=== PATIENT | female | born 1955 | race Caucasian/White ===

== ENCOUNTER → 2018-06-26 10:31 | Outpatient (CLI) | payer BC, SELFPAY ==
[2018-06-22 07:46] VITALS: BMI 28.4
--- NOTE | 2018-06-26 07:24 | PET_ITS ---
EXAMINATION: FDG PET CT INDICATIONS: A 63-year-old female with history of pulmonary nodularity. COMPARISON EXAMINATION: CT of the chest report dated 06/12/18. NON-INDEX LESION SIZE SUV INTERPRETATION Left lobe thyroid gland 14.3 mm (frame 222) 3.9 May be further investigated with thyroid ultrasound secondary to the quantitative degree of uptake TECHNIQUE: Following the intravenous administration of 14.01 mCi of F-18 deoxyglucose via the right antecubital fossa, multiplanar image acquisitions of the neck, chest, abdomen and pelvis to level of mid thigh, obtained at one hour post radiopharmaceutical administration contemporaneously interpreted with the current CT of the neck, chest, abdomen and pelvis to level of mid thigh, dated 06/26/[address] of the chest report dated 06/12/18 reveal: SERUM GLUCOSE LEVEL: 91 mg/dl. HEIGHT: 65 inches. WEIGHT: 175 lbs. FINDINGS: 1. Asymmetric increased glucose concentration is observed in the left anterior neck contiguous to the left lobe of the thyroid gland generating a calculated maximum standard uptake value of 3.9. The maximal axial diameter of the corresponding metabolic abnormality on review of CT of the neck dated 06/26/18 is 14.3 mm (AP). 2. There is no quantitative scintigraphic evidence of abnormal increased glucose metabolism within the context of the right lower medial lung field-right lower lobe to correspond to a noncalcified approximately 13.9 mm parenchymal density on review of CT of the chest dated 06/26/18. 3. Normal physiologic distribution of the radiopharmaceutical is apparent in the hepatic (2.9) and splenic parenchyma, both renal units, bladder and visualized intestinal tract. There is uniform distribution of the radiopharmaceutical concentration defined in the visualized cerebellar hemispheres and cerebral cortical structures.? Diffuse intestinal tract activity is noted throughout all four quadrants of the abdominal-pelvic retroperitoneum, mesentery consistent with normal physiologic distribution of the radiopharmaceutical. Prominent glucose metabolism is defined in the ascending and descending thoracic aorta commensurate with activated leukocytes associated with atherosclerotic plaque formation. (Sulaiman watts al, Clinical Nuclear Medicine 29:93, 2004). Pertinent CT findings are as follows. CHEST: Emphysematous change is noted in the bilateral upper lung zones. There are no additional parenchymal densities-nodules defined in the right-left hemithorax demonstrating discernible, quantitatively significant increased glucose metabolism. Right-left axillary subcentimeter soft tissue densities are non-glucose avid. ABDOMEN AND PELVIS: Atherosclerotic calcification is defined in the abdominal aorta without evidence of dilatation, aneurysm formation. Pelvic arterial calcification is observed. Bilateral inguinal soft tissue densities are ametabolic. Colonic diverticulosis is defined. The uterus appears surgically absent. SKELETAL: Degenerative changes defined in the cervical, thoracic and lumbar spine demonstrate no evidence for glucose hypermetabolism. PET/PET/CT Tumor Base -Thigh Init IMPRESSION: 1. Asymmetric increased glucose concentration observed in the left lobe of the thyroid gland may be further investigated with thyroid ultrasound secondary to the quantitative degree of uptake. (Allan Joya et al, Journal of Clinical Endocrinology and Metabolism 88:4100, 2003). 2. Anatomic stability may be ensured in the ametabolic right hemithorax pulmonary parenchymal-right lower lobe noncalcified parenchymal density with repeat CT of the thorax in three months. (Peyman, Seminars in Thoracic and Cardiovascular Surgery 14:292, 2002). Electronic Signature Jose Ferrari D.O. Electronically Signed: Jose Ferrari DO at 23:31 EST Tel , Service support ,
== END ==
PROVIDERS: Family Provider Internal Medicine; PCP Internal Medicine; Visit Provider Internal Medicine Critical Care Medicine
DX: R93.89 Abnormal findings on diagnostic imaging of other specified body structures (principal); R91.1 Solitary pulmonary nodule
CPT/HCPCS: 78815; A9552

== ENCOUNTER → 2018-07-28 07:38 | Outpatient (CLI) | payer BC, SELFPAY ==
[2018-06-22 07:46] VITALS: BMI 28.4
--- NOTE | 2018-07-28 12:29 | PFT ---
INTRODUCTION: The patient is a 63-year-old female that presents for pulmonary function studies secondary to a diagnosis of dyspnea. Respiratory therapy reports good patient effort. Bronchodilators were used during testing. INTERPRETATION: Forced expiration spirometry demonstrates no evidence of a large airways obstructive ventilatory defect. There was no significant response to aerosolized bronchodilators, based upon strict ATS criteria. Spirograms are of good quality and plateau gradually. Body plethysmography was performed and reveals lung volumes to be within normal limits. Diffusing capacity by single breath CO is also within normal limits. IMPRESSION: Normal pulmonary function studies.
== END ==
PROVIDERS: Family Provider Internal Medicine; PCP Internal Medicine; Referring Provider Internal Medicine Critical Care Medicine; Visit Provider Internal Medicine Critical Care Medicine
DX: R06.00 Dyspnea, unspecified (principal)
CPT/HCPCS: 94060; 94726; 94729

== ENCOUNTER → 2019-01-11 | Outpatient (CLI) | payer BC, SELFPAY ==
[2018-08-14 09:47] VITALS: BMI 28.4
--- NOTE | 2019-01-11 13:05 | CT_ITS ---
STUDY: CT CHEST WITHOUT CONTRAST REASON FOR EXAM: Female, 63 years old. Lung nodule RADIATION DOSAGE (If Supplied By Facility): CTDIvol = ( 12.47 ) mGy, DLP = ( 426.82 ) mGycm TECHNIQUE: Transaxial imaging was performed without the administration of intravenous contrast material. Multiplanar coronal and sagittal images were reformatted. Individualized dose optimization techniques were used for this CT. COMPARISON: Previous PET scan FINDINGS: Soft tissue windows show a left thyroid nodule which has shown to have uptake on the most recent PET scan. Lungs are well expanded, there is no superimposed infiltrate or effusion. There is a noncalcified 4mm nodule in the left medial lung base on axial image 97 this is too small to characterize, and likely did not show uptake on PET scan. There is no demonstrated pleural abnormality. Normal heart and pericardium. Normal mediastinum. Normal hilar regions. Normal unenhanced pulmonary arteries. Normal aorta arch and descending thoracic aorta. Normal osseous structures. There is no demonstrated abnormality of the visualized upper abdomen. CT/Chest without Contrast IMPRESSION: There is a 4 mm noncalcified pleural-based nodule in the medial left lower lung base No superimposed infiltrate or effusion No suspicious adenopathy Electronically Signed: Shawn Bay MD at 13:33 EDT , Service support ,
== END | disposition home or self-care (01) ==
PROVIDERS: Family Provider Internal Medicine; PCP Internal Medicine; Referring Provider Internal Medicine Critical Care Medicine; Visit Provider Internal Medicine Critical Care Medicine
DX: J84.10 Pulmonary fibrosis, unspecified (principal); R93.89 Abnormal findings on diagnostic imaging of other specified body structures
CPT/HCPCS: 71250

== ENCOUNTER 2019-07-10 12:18 | Day surgery (SDC) | payer BC, SELFPAY ==
[2019-07-05 14:52] VITALS: BMI 28.4
--- NOTE | 2019-07-09 20:36 | HP.PCM_ITS ---
History and Physical Date of Admission: 07/10/19 HISTORY OF PRESENT ILLNESS 64 year old woman presents with a recent diagnosis of melanoma on her right proximal outer arm on 06/21/19. She stated she had a lesion that had been increasing in size and had changed pigmentation over the last several months. A shave biopsy showed superficial spreading melanoma with a thickness of 0.8 mm. There was also melanoma in situ at the peripheral margin. She also had a lesion on her right proximal anterior arm that was shave biopsied at the same time which showed a mildly dysplastic nevus. This lesion had also been increasing in size as well. She has a family history of melanoma. She is right hand dominant. She presents at this time for further evaluation and treatment. PAST MEDICAL HISTORY Lung granuloma Synovial cyst of popliteal space [Scott], right knee Impingement syndrome of right shoulder C. difficile enteritis Osteoarthritis PAST SURGICAL HISTORY excision of ganglion cyst tonsillectomy hysterectomy toe surgery tubal ligation ALLERGIES Penicillins MEDICATIONS ibuprofen multivitamin FAMILY HISTORY Sister - Rheumatoid arthritis, Diabetes, COPD (chronic obstructive pulmonary disease), Atrial fibrillation, Hypertension, High cholesterol, Melanoma Father - Diabetes, COPD (chronic obstructive pulmonary disease), Colon cancer Mother - Atrial fibrillation, Colon cancer, Arthritis Brother - Diabetes SOCIAL HISTORY Smoking Status: Former smoker quit date: 05/23/92 pack-years: 40 alcohol intake: never substance use type: does not use REVIEW OF SYSTEMS General - Denies fever, fatigue, and weight loss. Eyes - Denies cataracts and glaucoma. ENT - Denies nasal congestion and sore throat. Endocrine - Denies excessive thirst and urination. Skin - Has family history of melanoma. Had lesion right proximal outer arm that was biopsied on 06/21/19 and it showed a superficial spreading melanoma with a thickness on 0.8 mm and melanoma in situ. Had lesion right proximal anterior arm that was biopsied on 06/21/19 and it showed a mildly dysplastic nevus. Musculoskeletal - Denies joint pain, weakness of muscles and joints, back pain. Has joint stiffness and arthritis. Neuro - Denies headaches. Cardiovascular - Denies chest pain, fatigue, and shortness of breath with exertion. Psych - Denies anxiety and depression. Respiratory - Denies chronic cough and shortness of breath. Patient is a former smoker. Gastrointestinal - Denies nausea, vomiting, diarrhea, and constipation. Hematologic - Denies abnormal bruising and bleeding. Genitourinary - Denies hematuria and urinary frequency. PHYSICAL EXAMINATION General - Alert and Oriented. HEENT - PERRL. EOMI. Throat is clear. No suspicious lesions noted. Neck - Supple and nontender. No cervical adenopathy. No suspicious lesions noted. Lungs - Clear to auscultation. Heart - Regular rate and rhythm. Abdomen - Soft and nondistended. Extremities - FROM. No axillary adenopathy. Radial pulses are palpable. On the right proximal outer arm is a healing scab from recent shave biopsy that showed superficial spreading melanoma with a thickness of 0.8 mm and a melanoma in situ. Healing scar measures 7 mm. Has irregular borders. No ulceration. Lesion is nontender. On the right proximal anterior arm is a healing scab from recent shave biopsy that showed mildly dysplastic nevus. Healing scar measures 5 mm. Has irregular borders. No ulceration. Lesion is nontender. Neuro - CN II-XII grossly intact. Psych - Normal mood and affect. ASSESSMENT 1. 7 mm superficial spreading melanoma right proximal outer arm with a shave thickness of 0.8 mm. 2. 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 3. 5 mm mildly dysplastic nevus right proximal anterior arm. 4. Family history of melanoma. 5. Former smoker. PLAN Had discussion with the patient regarding treatment of melanoma. She had a shave biopsy on 06/21/19 which showed a superficial spreading melanoma with an initial thickness of 0.8 mm. Since it was a shave biopsy, will need to establish the diagnosis with a completion excision into the subcutaneous tissue. Will leave the wound open initially and start wound care with Silver dressing changes. Once the pathology is available, we can determine the thickness. The thickness determines the margin necessary at the time of the definitive wide excision of the melanoma down to the muscular fascia with skin flap or skin graft reconstruction. The thickness of melanoma is divided into thin category which is thickness less than 1 mm, intermediate category which is thickness between 1 and 4 mm. and thick category which is thickness greater than 4 mm. The intermediate category (between 1 and 4 mm) necessitates further evaluation of the lymph nodes with a sentinel node biopsy. If positive than a complete lymph node dissection would be done. This procedure if necessary would be done at a tertiary center. Right now the patient has a thickness of 0.8 mm which is thin right now but depending on the completion excision, it may increase to the intermediate thickness category. Patient is aware that more extensive surgery may need to be done at a tertiary center. Once the thickness has been determined with a full thickness excision, then can determine the margin of excision for the definitive treatment. For a thin melanoma (thickness less than 1 mm), the margin is 1 cm. For an intermediate thickness melanoma (thickness between 1 and 4 mm), the margin is 2 cm. For a thick melanoma (thickness greater than 4 mm), the margin is 2-3 cm. After this melanoma is treated, she would need close followup with TBSE every 3- 6 months for the next 5 years at least and then yearly. She would need a yearly CXR and lab work with LFT's which includes an LDH and fractionation of the Alkaline Phosphatase. She also had a shave biopsy of a lesion on the right proximal anterior arm which showed a mildly dysplastic nevus. She will need a completion excision of this lesion as well to minimize recurrence and development into a melanoma. If inadequately treated, the recurrence rate and risk of developing a melanoma in a patient with a melanoma approaches 100% The initial completion excision surgery will be done next week under local anesthesia and IV sedation on an outpatient basis. The definitive surgery of wide excision down to the muscular fascia with skin graft or skin flap reconstruction can be done under general anesthesia on an outpatient basis. Patient was informed of the risks and complications of the procedure including alternatives to surgery. These were discussed with the patient personally. Patient voices understanding and wishes to proceed. Some of the risks and complications were included in a form from the [employer]. She also has melanoma in situ peripherally. Even with the standard margins for the wide excision to treat the superficial spreading melanoma, if there is persistent melanoma in situ at the peripheral margin after the wide excision, then additional margin will be necessary until margins are clear of any residual melanoma in situ. Normally a melanoma in situ requires a 5 mm margin.
[2019-07-10] VITALS (7 sets, daily range): BP systolic 112–172; BP diastolic 60–68; PULSE 61–68; RESP 16–18; TEMP 36.6–36.7; O2SAT 94–98; BMI 26.0
--- NOTE | 2019-07-10 | IMM_PTH ---
PATIENT: LUZ VILLA LOC: [facility] [place] U#:[id number] AGE/SX: 64/F ROOM: RE07/10/[address]: Dr. Tru Ireland MD : 1955 BED: DIS: 07/10/2019 SPEC #: [id number] RECD: 07/12/19 11:31 STATUS: CHUCKY REQ #: [id number] JAIMEE: 07/10/19 00:[address]: Tru Ireland DEPT: IMMUNOHISTOCHEMISTRY RECD BY: Fanta Bauer ENTERED: 07/12/19 11:33 SP TYPE: IMMUNO OTHR DR: Dr. Ivanna Fleming, DO Tissues: A - Skin of arm B - Skin of arm Procedures: MACRO (add) Vimentin (add) MELAN-A (initial) S-100 (add) PHYSICIAN & INSTITUTION [place] [address] SPECIMEN INFORMATION: Tissue Source: A - Right proximal anterior arm, B - Right proximal posterior arm Clinical Info: Melanoma right proximal outer arm; melanoma right proximal outer arm; nevus right proximal anterior arm Specimen Number: [id number] A2 & B CPT code: 37696 x2, 42076 x6 METHODOLOGY: Deparaffinized sections of prefer/formalin-fixed tissue or PAP/DQ stained slides are incubated with monoclonal/polyclonal antibodies/oligonucleotide probes. Localization is made via biotin free immunoperoxidase method. Appropriate controls are performed and reacted as expected. Results on target cell population are indicated in the following table: RESULTS: ANTIBODY / CLONE RESULT Block A2 S-100 (4C4.9) positive, focal Melan A (A103) positive, focal Vimentin (V9) negative Macro (HAM-56) negative Block B S-100 (4C4.9) positive, focal Melan A (A103) positive, focal Vimentin (V9) negative Macro (HAM-56) negative These tests were developed and their performance characteristics determined by [facility]. They may not have been cleared or approved by the U.S. Food and Drug Administration. The FDA has determined that such clearance or approval is not necessary. The above immunohistochemical/dualISH markers are ordered and reviewed by the Pathologist. INTERPRETATION: A. Skin lesion, right proximal anterior arm, excision: Focal mild melanocytic hyperplasia with rare junctional nest. B. Right proximal posterior arm lesion, biopsy: Focal mild melanocytic hyperplasia. AM:reji 07/16/19 Case has been reviewed in consultation with Dr. Tena who concurs with the above diagnosis. IDC:SJ
[2019-07-10] MEDS: Lactated Ringers 1,000 ML 100 ML IV (12:52)
--- NOTE | 2019-07-10 14:15 | TISS_PTH ---
PATIENT: LUZ VILLA LOC: [facility] [place] U#:[id number] AGE/SX: 64/F ROOM: RE07/10/[address]: Dr. Tru Ireland MD : 1955 BED: DIS: 07/10/2019 SPEC #: [id number] RECD: 07/10/19 16:44 STATUS: CHUCKY REShaun #: [id number] JAIMEE: 07/10/19 14:[address]: Tru Ireland DEPT: SURGICAL PATHOLOGY RECD BY: Una Hughes ENTERED: 07/11/19 08:50 SP TYPE: Tissue Bx ZENAIDA DR: Dr. Ivanna Fleming DO Tissues: A - Skin of arm B - Skin of arm Procedures: Surgery Specimen Level IV HEADER OPERATION: Completion excision melanoma right posterior proximal outer arm PRE-OP DIAGNOSIS: 7 mm superficial spreading melanoma right proximal outer arm with a shave thickness of 0.8 mm; melanoma in situ right proximal outer arm; 5 mm mildly dysplastic nevus right proximal anterior arm TISSUE SUBMITTED: A. Right proximal anterior arm dysplastic nevus, suture at 12 o'clock, B. Right proximal posterior arm melanoma, suture at 12 o'clock MICROSCOPIC DIAGNOSIS A. Skin lesion, right proximal anterior arm, excision: Junctional melanotic nests consistent with residual nevus, completely excised Mild benign melanocytic hyperplasia. Cicatrix. No evidence of malignancy. See comment. B. Right proximal posterior arm lesion, biopsy: Mild benign melanocytic hyperplasia. Cicatrix. Eschar. No evidence of residual melanoma. See comment. AM:reji 07/12/19 COMMENT A & B. Immunohistochemistry ([id number]) supports the above diagnosis. Case has been reviewed in consultation with Dr. Tena who concurs with the above diagnosis. IDC:SJ MICROSCOPIC DESCRIPTION Slides are reviewed. GROSS DESCRIPTION A - Received in fixative is one container labeled with the patient's name and designated right proximal inferior arm dysplastic nevus, suture at 12 o'clock. The specimen consists of a murrieta-white skin ellipse measuring 2 x 0.6 cm and up to 0.5 cm in thickness. The specimen is inked as follows: 12 o'clock tip - yellow, 6 o'clock tip - green, 3 o'clock margin - black and 9 o'clock margin - blue. The specimen is serially sectioned and submitted entirely in two cassettes. Cassette 1 contains the 6 and 12 o'clock tips. B - Received in fixative is one container labeled with the patient's name and designated right proximal posterior arm melanoma, suture at 12 o'clock. The specimen consists of a round piece of murrieta-white skin measuring 1 x 0.8 cm and up to 0.5 cm in thickness. A focal area of ulceration and desquamation is noted on the surface. The specimen is inked as follows: 12-3 o'clock - black, 3 to 6 o'clock - blue, 6 to 9 o'clock - green and 9 to 12 o'clock - yellow. The specimen is serially sectioned and submitted entirely in one cassette. / MALU:reji 07/11/19 TC:3 CPT: 89599 x2
[2019-07-10] MEDS: Mupirocin Ointment 22gm Tube 1 APPLIC (15:37)
--- NOTE | 2019-07-10 15:54 | OP.PCM_ITS ---
Report of Operation Date of Procedure: 07/10/19 Pre-Operative Diagnosis: 1. 7 mm superficial spreading melanoma right proximal outer arm with a shave thickness of 0.8 mm. 2. 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 3. 5 mm mildly dysplastic nevus right proximal anterior arm. 4. Family history of melanoma. 5. Former smoker. Post-Operative Diagnosis: Same. Surgery/Procedure Performed:: 1. Completion excision 7 mm superficial spreading melanoma right proximal outer arm with a shave thickness of 0.8 mm. 2. Excision 5 mm mildly dysplastic nevus right proximal anterior arm with 2.5 cm layered closure. Description of Surgical Findings:: 64 year old woman presents with a recent diagnosis of melanoma on her right proximal outer arm on 06/21/19. She stated she had a lesion that had been increasing in size and had changed pigmentation over the last several months. A shave biopsy showed superficial spreading melanoma with a thickness of 0.8 mm. There was also melanoma in situ at the peripheral margin. She also had a lesion on her right proximal anterior arm that was shave biopsied at the same time which showed a mildly dysplastic nevus. This lesion had also been increasing in size as well. She has a family history of melanoma. She is right hand dominant. Patient was informed of the risks and complications of the procedure including alternatives to surgery. These were discussed with the patient personally. Patient voices understanding and wishes to proceed. Some of the risks and complications were included in a form from the [employer]. Size of defect right proximal outer arm - 1.1 x 1.1 x 0.3 cm. 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 Specimen's removed: 1. Superficial spreading melanoma lesion right proximal outer arm to Pathology. 2. Dysplastic nevus lesion right proximal anterior arm to Pathology. Drains: None. Estimated Blood Loss (mL): 10 ml. Description of Procedure: Patient was taken to OR in supine position and was given IV sedation. The right arm was prepped and draped in the usual fashion. SCD's were placed for DVT prophylaxis. Perioperative antibiotics were given intravenously. The lesions right proximal outer arm and right proximal anterior arm were infiltrated with xylocaine and epinephrine. After waiting 5 minutes for the anesthetic to take effect, the dysplastic nevus lesion right proximal anterior arm was excised in a longitudinal elliptical fashion down into the subcutaneous tissue. The lesion was excised with a 2 mm margin in all directions making it a 9 mm excision and a 2.5 cm layered closure. A suture was marked at 12 oclock position for pathology orientation and then sent to pathology for analysis to rule out carcinoma. Hemostasis was obtained with electrocautery. The wound was closed in a layered fashion with 4-0 Monocryl interrupted sutures for the deep dermis and subcutaneous tissue. The skin was approximated with 4-0 Prolene simple interrupted sutures. Antibiotic ointment was applied to the suture line. The superficial spreading melanoma lesion right proximal outer arm (based on an initial shave excision) was excised in a circular fashion into the superficial subcutaneous tissue for a completion excision to establish a diagnosis. It was excised with a 2 mm margin in all directions thus making it a 1.1 cm excision. A suture was marked at 12 oclock position for pathology orientation. The lesion was sent to Pathology for analysis to rule out any residual melanoma. Hemostasis was obtained with electrocautery. The size of the defect after completion excision of the superficial spreading melanoma was 1.1 x 1.1 x 0.3 cm. The wound was then packed with Silver dressing followed by a 4-0 Prolene tie over stent suture dressing. Gauze was applied to both wounds followed by a compression heide wrap. Patient tolerated the procedure well and was sent to PACU in satisfactory condition. Patient will be sent home on antibiotics and pain medication. She will keep the right arm elevated during the initial postoperative period. Patient will followup in a couple of days for removal of the Silver dressing and a wound check and for discussion of the pathology report. The sutures will be removed in a week. Once the pathology report is available, will then need definitive wide excision of the melanoma with a margin down to the muscular fascia followed by skin graft or skin flap reconstruction. Grafts/Implants Used: None. - Complications None. - Admit VTE Documentation VTE Present on Admission: No VTE Mechan Device Prophylaxis: SCD's VTE Pharm Prophylaxis ordered?: No Code Visit Surgery Charges CPT - 56545 ICD-10 - C43.61, D03.61, Z80.8, Z87.891 55845 D22.61, Z85.820, Z80.8, Z87.891 88240 D22.61, Z85.820, Z80.8, Z87.891
--- NOTE | 2019-07-10 16:02 | DCINST_ITS ---
You will use the following diet at home:: No restrictions Discharge Activity: May not drive while taking narcotic pain medications., - - elevate right arm. no heavy lifting. May shower in (days): 1 - wear plastic bag over right arm when showering. May resume sexual activity in: No Restrictions Weight Bearing Status: Weight bearing as tolerated Lifting Restrictions: 20 lbs. Keep extremity elevated above heart level: Right Arm Call your doctor if your incision/area has: Continuous Slow Oozing, Sudden Increased Bleeding, Increased Pain/ Swelling, Increased Redness, Foul Smelling Discharge, Swelling at the incision site Call your doctor if you observe: Fever of 101 or Higher, Coldness, Increased Pain, Shortness of breath, Chest pain, Calf discomfort, Uncontrolled pain Suture Line Care: - - after operative dressing removed in the office, apply antibiotic ointment to suture line daily and will proceed with Silver dressing changes daily. Change Dressing in (Days):: 2 - will change dressing in office. Cleanse incision/area with: - - wear plastic bag over right arm when showering. Allergies/Adverse Reactions: Allergies Penicillins Allergy (Verified 07/10/19 12:29) Shortness of breath Medications to take at Discharge multivitamin,[id number] 1 tab PO DAILY 06/15/18 Clindamycin HCl [Cleocin] 300 mg PO TID #15 cap 07/10/19 Lactobacillus Acidophilus/Fos [Acidophilus Probiotic Tablet] 1 ea PO BID #10 tab 07/10/19 Oxycodone HCl/Acetaminophen [Percocet 5/325] 1 tablet PO Q4H PRN PRN 7 Days #30 tablet 07/10/19 The following prescriptions were given: Lactobacillus Acidophilus/Fos [Acidophilus Probiotic Tablet] 1 ea PO BID #10 tab Transmission Status: Pending to [id number] Clindamycin HCl [Cleocin] 300 mg PO TID #15 cap Transmission Status: Pending to [id number] Oxycodone HCl/Acetaminophen [Percocet 5/325] 1 tablet PO Q4H PRN PRN 7 Days #30 tablet PRN Reason: Pain Score 4-5/10 Transmission Status: Received by [id number] Primary Care Physician: Ivanna Fleming DO [Primary Care Provider] - Test Results: Test results from this visit will be discussed in further detail at your follow- up appointment, if applicable. Please Follow Up With: Tru Ireland MD When: 07/12/19. call [phone] for appt. Proposed Discharge Date: 07/10/19
== END 2019-07-10 16:46 | disposition home or self-care (01) ==
LOC: SDC 12:19 → AC 12:21
PROVIDERS: PCP Internal Medicine; Referring Provider Surgery; Visit Provider Surgery
PROC: (CPT 11401; principal; 2019-07-10 14:05)
DX: C43.61 Malignant melanoma of right upper limb, including shoulder (principal); Z87.891 Personal history of nicotine dependence; Z80.8 Family history of malignant neoplasm of other organs or systems; M19.90 Unspecified osteoarthritis, unspecified site; D22.61 Melanocytic nevi of right upper limb, including shoulder; Z85.820 Personal history of malignant melanoma of skin
CPT/HCPCS: 00400; 11401; 11602; 12031; 88305; 88341; 88342; J7120; J2405

== ENCOUNTER 2019-07-23 08:48 | Day surgery (SDC) | payer BC, SELFPAY ==
[2019-07-19 13:24] VITALS: BMI 26.0
--- NOTE | 2019-07-23 | LES_PTH ---
PATIENT: LUZ VILLA LOC: [facility] [place] U#:[id number] AGE/SX: 64/F ROOM: RE07/23/[address]: Dr. Tru Ireland MD : [id number] BED: DIS: 07/23/2019 SPEC #: [id number] RECD: 07/23/19 13:20 STATUS: CHUCKY REShaun #: [id number] JAIMEE: 07/23/19 00:[address]: Tru Ireland DEPT: SURGICAL PATHOLOGY RECD BY: Benjamín Gibson ENTERED: 07/23/19 13:21 SP TYPE: Lesion OTHR DR: Dr. Ivanna Fleming, DO Tissues: Skin of arm Procedures: Surgery Specimen Level IV HEADER OPERATION: Wide excision melanoma, skin graft, right proximal outer arm PRE-OP DIAGNOSIS: Melanoma right proximal outer arm TISSUE SUBMITTED: Melanoma right proximal outer arm, suture at 12 o'clock MICROSCOPIC DIAGNOSIS Melanoma right proximal outer arm, wide excision: Negative for residual melanoma. Focal ulceration with associated inflammation, foreign body giant cell reaction and granulation tissue reaction, consistent with previous biopsy site. See comment. MALU:reji 07/26/19 COMMENT Please make reference to previous specimen ([id number]) skin lesion, right proximal anterior arm with diagnosis of junctional melanocytic nests consistent with residual nevus and right proximal posterior arm lesion with diagnosis of mild melanocytic hyperplasia, eschar and no evidence of residual melanoma. MICROSCOPIC DESCRIPTION Slides are reviewed. GROSS DESCRIPTION Received in fixative is one container labeled with the patient's name and designated melanoma right proximal outer arm. The specimen consists of a piece of skin with underlying tissue measuring 4 x 3.5 cm and up to 1.2 cm in thickness. A central area of ulceration is noted measuring 1 cm in diameter. The specimen is oriented by a suture at 12 o'clock. The specimen is inked as follows: 12 to 3 o'clock - black, 3 to 6 o'clock - blue, 6 to 9 o'clock - green, 9 to 12 o'clock - yellow and deep margin - red. The specimen is serially sectioned and submitted entirely in eight cassettes from 3 o'clock margin to 9 o'clock margin. Sections will be submitted after overnight fixation. / MALU:reji 07/24/19 TC:5 CPT: 90033
--- NOTE | 2019-07-23 08:54 | HP.PCM_ITS ---
History and Physical Date of Admission: 07/23/19 History and Physical Date of Admission: 07/10/19 HISTORY OF PRESENT ILLNESS 64 year old woman presents with a recent diagnosis of melanoma on her right proximal outer arm on 06/21/19. She stated she had a lesion that had been incre asing in size and had changed pigmentation over the last several months. A shave biopsy showed superficial spreading melanoma with a thickness of 0.8 mm. There was also melanoma in situ at the peripheral margin. She also had a lesion on her right proximal anterior arm that was shave biopsied at the same time which showed a mildly dysplastic nevus. This lesion had also been increasing in size as well. She has a family history of melanoma. She is right hand dominant. She presents at this time for further evaluation and treatment. PAST MEDICAL HISTORY Lung granuloma Synovial cyst of popliteal space [Scott], right knee Impingement syndrome of right shoulder C. difficile enteritis Osteoarthritis PAST SURGICAL HISTORY excision of ganglion cyst tonsillectomy hysterectomy toe surgery tubal ligation ALLERGIES Penicillins MEDICATIONS ibuprofen multivitamin FAMILY HISTORY Sister - Rheumatoid arthritis, Diabetes, COPD (chronic obstructive pulmonary disease), Atrial fibrillation, Hypertension, High cholesterol, Melanoma Father - Diabetes, COPD (chronic obstructive pulmonary disease), Colon cancer Mother - Atrial fibrillation, Colon cancer, Arthritis Brother - Diabetes SOCIAL HISTORY Smoking Status: Former smoker quit date: 05/23/92 pack-years: 40 alcohol intake: never substance use type: does not use REVIEW OF SYSTEMS General - Denies fever, fatigue, and weight loss. Eyes - Denies cataracts and glaucoma. ENT - Denies nasal congestion and sore throat. Endocrine - Denies excessive thirst and urination. Skin - Has family history of melanoma. Had lesion right proximal outer arm that was biopsied on 06/21/19 and it showed a superficial spreading melanoma with a thickness on 0.8 mm and melanoma in situ. Had lesion right proximal anterior arm that was biopsied on 06/21/19 and it showed a mildly dysplastic nevus. Musculoskeletal - Denies joint pain, weakness of muscles and joints, back pain. Has joint stiffness and arthritis. Neuro - Denies headaches. Cardiovascular - Denies chest pain, fatigue, and shortness of breath with exertion. Psych - Denies anxiety and depression. Respiratory - Denies chronic cough and shortness of breath. Patient is a former smoker. Gastrointestinal - Denies nausea, vomiting, diarrhea, and constipation. Hematologic - Denies abnormal bruising and bleeding. Genitourinary - Denies hematuria and urinary frequency. PHYSICAL EXAMINATION General - Alert and Oriented. HEENT - PERRL. EOMI. Throat is clear. No suspicious lesions noted. Neck - Supple and nontender. No cervical adenopathy. No suspicious lesions noted. Lungs - Clear to auscultation. Heart - Regular rate and rhythm. Abdomen - Soft and nondistended. Extremities - FROM. No axillary adenopathy. Radial pulses are palpable. On the right proximal outer arm is a healing scab from recent shave biopsy that showed superficial spreading melanoma with a thickness of 0.8 mm and a melanoma in situ. Healing scar measures 7 mm. Has irregular borders. No ulceration. Lesion is nontender. On the right proximal anterior arm is a healing scab from recent shave biopsy that showed mildly dysplastic nevus. Healing scar measures 5 mm. Has irregular borders. No ulceration. Lesion is nontender. Neuro - CN II-XII grossly intact. Psych - Normal mood and affect. ASSESSMENT 1. 7 mm superficial spreading melanoma right proximal outer arm with a shave thickness of 0.8 mm. 2. 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 3. 5 mm mildly dysplastic nevus right proximal anterior arm. 4. Family history of melanoma. 5. Former smoker. PLAN Had discussion with the patient regarding treatment of melanoma. She had a shave biopsy on 06/21/19 which showed a superficial spreading melanoma with an initial thickness of 0.8 mm. Since it was a shave biopsy, will need to establish the diagnosis with a completion excision into the subcutaneous tissue. Will leave the wound open initially and start wound care with Silver dressing changes. Once the pathology is available, we can determine the thickness. The thickness determines the margin necessary at the time of the definitive wide excision of the melanoma down to the muscular fascia with skin flap or skin gr aft reconstruction. The thickness of melanoma is divided into thin category which is thickness less than 1 mm, intermediate category which is thickness between 1 and 4 mm. and thick category which is thickness greater than 4 mm. The intermediate category (between 1 and 4 mm) necessitates further evaluation of the lymph nodes with a sentinel node biopsy. If positive than a complete lymph node dissection would be done. This procedure if necessary would be done at a tertiary center. Right now the patient has a thickness of 0.8 mm which is thin right now but depending on the completion excision, it may increase to the intermediate thickness category. Patient is aware that more extensive surgery may need to be done at a tertiary center. Once the thickness has been determined with a full thickness excision, then can determine the margin of excision for the definitive treatment. For a thin melanoma (thickness less than 1 mm), the margin is 1 cm. For an intermediate thickness melanoma (thickness between 1 and 4 mm), the margin is 2 cm. For a thick melanoma (thickness greater than 4 mm), the margin is 2-3 cm. After this melanoma is treated, she would need close followup with TBSE every 3- 6 months for the next 5 years at least and then yearly. She would need a yearly CXR and lab work with LFT's which includes an LDH and fractionation of the Alkaline Phosphatase. She also had a shave biopsy of a lesion on the right proximal anterior arm which showed a mildly dysplastic nevus. She will need a completion excision of this lesion as well to minimize recurrence and development into a melanoma. If inadequately treated, the recurrence rate and risk of developing a melanoma in a patient with a melanoma approaches 100% The initial completion excision surgery will be done next week under local anesthesia and IV sedation on an outpatient basis. The definitive surgery of wide excision down to the muscular fascia with skin graft or skin flap reconstruction can be done under general anesthesia on an outpatient basis. Patient was informed of the risks and complications of the procedure including alternatives to surgery. These were discussed with the patient personally. Pa tient voices understanding and wishes to proceed. Some of the risks and complications were included in a form from the [employer]. She also has melanoma in situ peripherally. Even with the standard margins for the wide excision to treat the superficial spreading melanoma, if there is persistent melanoma in situ at the peripheral margin after the wide excision, then additional margin will be necessary until margins are clear of any residual melanoma in situ. Normally a melanoma in situ requires a 5 mm margin.
[2019-07-23 09:18] VITALS: BP 159/75; PULSE 56; RESP 15; TEMP 36.6; O2SAT 98; BMI 25.4
[2019-07-23] MEDS: Lactated Ringers 1,000 ML 100 ML IV ×2 (09:29→12:48)
[2019-07-23] MEDS: Mupirocin Ointment 22gm Tube 1 APPLIC (10:30)
--- NOTE | 2019-07-23 11:54 | PCM.OPRPT ---
Report of Operation Date of Procedure: 07/23/19 Pre-Operative Diagnosis: 1. 1.1 cm superficial spreading melanoma wound right proximal outer arm with a thickness of 0.8 mm. 2. 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 3. History of dysplastic nevus. 4. Family history of melanoma. 5. Former smoker. Post-Operative Diagnosis: Same. Surgery/Procedure Performed:: 1. Wide excision 1.1 cm superficial spreading melanoma wound right proximal outer arm with a thickness of 0.8 mm. 2. Reconstruction with STSG from right flank (9.61 cm2) and placement AmnioFill placental connective tissue powder (500 mg). Description of Surgical Findings:: Patient had surgery on 07/10/19 where she underwent completion excision 7 mm superficial spreading melanoma right proximal outer arm with a shave thickness of 0.8 mm and excision 5 mm mildly dysplastic nevus right proximal anterior arm with 2.5 cm layered closure. Pathology showed no additional melanoma was present and the dysplastic nevus was completely excised. Therefore the final diagnosis thickness for the melanoma was 0.8 mm making it a thin melanoma. For a thin melanoma, no sentinel lymph node biopsy is necessary at this time and definitive wide excision of the melanoma down to muscular fascia is needed with a 1 cm margin in all directions. Reconstruction will be with a skin graft or a skin flap. Surgery will be done under general anesthesia on an outpatient basis. Patient was informed of the risks and complications of the procedure including alternatives to surgery. These were discussed with the patient personally. Patient voices understanding and wishes to proceed. Some of the risks and complications were included in a form from the [employer]. Size of skin graft right proximal outer arm - 3.1 x 3.1 cm. I used AmnioFill Placental Connective Tissue Powder, 500 mg. Catalog Number - [id number]. Lot Number - [id number]. Expiration - January 22, 2024. natural gas inspector: Taisha Johnston. Type of Anesthesia:: General Specimen's removed: Superficial spreading melanoma wound right proximal outer arm with a thickness of 0.8 mm to Pathology. Drains: None. Estimated Blood Loss (mL): 10 ml. Description of Procedure: Patient was taken to OR in supine position and was placed under general anesthesia. The right arm and right flank areas were prepped and draped in the usual fashion. SCD's were placed for DVT prophylaxis. Perioperative antibiotics were given intravenously. Using xylocaine with epinephrine, the melanoma wound right proximal outer arm and right flank areas were infiltrated. After waiting 5 minutes for the anesthetic to take effect, an elliptical incision was made in the right flank into the subcutaneous tissue. The subcutaneous tissue and the deeper dermis were removed thus fashioning a thick split thickness skin graft. The skin graft was placed on stretch and meshed with a size 15 scalpel. The skin graft was placed in saline. Excess subcutaneous tissue was excised to aid in wound closure. Hemostasis was obtained with electrocautery. The donor incision was closed in multiple layers with 3-0 Monocryl interrupted sutures for Guille's fascia. The deep dermis and subcutaneous tissue was approximated with 3-0 Monocryl interrupted sutures. The skin was approximated with 3-0 V lock unidirectional barbed running subcuticular suture. This was followed by Histoacryl skin tissue adhesive and Kerlix gauze dressing. I then proceeded with a wide excision of the superficial spreading melanoma wound right proximal outer arm with a thickness of 0.8 mm. The wide excision involved a 1 cm margin in all directions down to the muscular fascia thus making it a 3.1 cm excision. A suture was placed at 12 oclock position for pathology orientation. The lesion was sent to Pathology for analysis to rule out carcinoma at the margins. The size of the defect after the wide excision was 3.1. x 3.1 cm or 9.61 cm2. Prior to placement of the skin graft, I placed AmnioFill placental connective tissue powder on the wound bed to aid in healing of the skin graft. The split thickness skin graft was placed on the wound defect and secured to the wound edges with 3-0 Chromic simple interrupted sutures. 3-0 Chromic sutures were also used for central quilting stabilization. Antibiotic ointment was applied to the skin graft followed by Xeroform gauze and cotton balls soaked in saline and secured to the skin edge with 3-0 Nylon tie over stent suture dressing. Dry gauze was applied over the stent suture dressing followed by a compression heide wrap. Patient tolerated the procedure well and was sent to PACU in satisfactory condition. Patient will be sent home on pain medication. With her history of Cdiff, she didn't want to take any antibiotics after surgery. Patient will followup in the office later this week on 07/27/19, for takedown of the skin graft dressing and wound check and for discussion of the pathology report. Grafts/Implants Used: AmnioFill Placental Connective Tissue Powder. - Complications None. - Admit VTE Documentation VTE Present on Admission: No VTE Mechan Device Prophylaxis: SCD's VTE Pharm Prophylaxis ordered?: No Code Visit Surgery Charges CPT - 43900-65 ICD-10 - C43.61, D03.61, S41.101A, Z86.018, Z80.8, Z87.891 67520 C43.61, D03.61, S41.101A, Z86.018, Z80.8, Z87.891
[2019-07-23 11:58] VITALS: BP 136/77; BP 159/75; PULSE 76; RESP 16; TEMP 37; O2SAT 94
--- NOTE | 2019-07-23 12:06 | PCM.DC ---
You will use the following diet at home:: No restrictions Discharge Activity: May not drive while taking narcotic pain medications., May Shower - in two days. wear plastic bag over right arm when showering. May shower in (days): 2 - wear plastic bag over right arm when showering. May resume sexual activity in: No Restrictions Weight Bearing Status: Weight bearing as tolerated Lifting Restrictions: 20 lbs. Keep extremity elevated above heart level: Right Arm Call your doctor if your incision/area has: Continuous Slow Oozing, Sudden Increased Bleeding, Increased Pain/ Swelling, Increased Redness, Foul Smelling Discharge, Swelling at the incision site Call your doctor if you observe: Fever of 101 or Higher, Coldness, Increased Pain, Shortness of breath, Chest pain, Calf discomfort, Uncontrolled pain Suture Line Care: - - dry dressing to right flank incision after operative dressing removed in two days. Change Dressing in (Days):: 1 - dry dressings daily to right flank incision after operative dressing removed Remove Dressing in (days):: 4 - right arm dressing will be removed in the office Cleanse incision/area with: - - may get right flank incision wet in the shower in two days. wear plastic bag over right arm when showering. Additional Instructions: Patient has history of Cdiff and does not want oral antibiotics at discharge. Allergies/Adverse Reactions: Allergies Penicillins Allergy (Verified 07/23/19 09:11) Shortness of breath Medications to take at Discharge multivitamin,[id number] 1 tab PO DAILY 06/15/18 Oxycodone HCl/Acetaminophen [Percocet 5/325] 1 tablet PO Q6H PRN PRN 7 Days #30 tablet 07/23/19 The following prescriptions were given: Oxycodone HCl/Acetaminophen [Percocet 5/325] 1 tablet PO Q6H PRN PRN 7 Days #30 tablet PRN Reason: Pain Score 4-5/10 Transmission Status: Received by [facility]/pharmacy #[id number] Primary Care Physician: Ivanna Fleming DO [Primary Care Provider] - Test Results: Test results from this visit will be discussed in further detail at your follow-up appointment, if applicable. Please Follow Up With: Tru Ireland MD When: tuesday07/27/19. call [phone] for appt. Proposed Discharge Date: 07/23/19
[2019-07-23 12:15] VITALS: BP 137/76; BP 159/75; PULSE 63; RESP 16; O2SAT 95
[2019-07-23 12:30] VITALS: BP 135/72; BP 159/75; PULSE 58; RESP 16; O2SAT 95
[2019-07-23 12:45] VITALS: BP 137/74; BP 159/75; PULSE 56; RESP 16; TEMP 36.5; O2SAT 99
[2019-07-23 13:52] VITALS: BP 159/75; BP 175/77; PULSE 52; RESP 18; TEMP 36.9; O2SAT 99
== END 2019-07-23 13:55 | disposition home or self-care (01) ==
LOC: SDC 08:48 → AC 08:49
PROVIDERS: PCP Internal Medicine; Referring Provider Surgery; Visit Provider Surgery
PROC: (CPT 11604; principal; 2019-07-23 10:15)
DX: C43.61 Malignant melanoma of right upper limb, including shoulder (principal); Z80.8 Family history of malignant neoplasm of other organs or systems; Z87.891 Personal history of nicotine dependence; M19.90 Unspecified osteoarthritis, unspecified site; D22.61 Melanocytic nevi of right upper limb, including shoulder
CPT/HCPCS: 00400; 11604; 15100; 88305; J7120; J2405